=== PATIENT | female | born 2000 | race Caucasian/White ===

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

== ENCOUNTER 2022-01-08 12:14 | Emergency (ER) | payer MEDICAID ==
[~2022-01-08] VITALS: Ht 167.6 cm; Wt 81.6 kg
[2022-01-08 12:42] VITALS: BP 114/71
[2022-01-08 13:49] LABS: BASOPHILS # (AUTO) 0.1 K/uL (0.00-0.22); BASOPHILS % (AUTO) 0.8 % (0.0-2.0); EOSINOPHILS % (AUTO) 0.1 % (0.0-4.0); HEMATOCRIT 41.4 % (36-48); HEMOGLOBIN 14.5 g/dL (12.0-16.0); LYMPHOCYTES # (AUTO) 1.2 K/uL (2.5-16.5); LYMPHOCYTES % (AUTO) 6.5 % (20.5-51.1); MEAN CORPUSCULAR HEMOGLOBIN 31 pg (27-31); MEAN CORPUSCULAR HGB CONC 35 g/dL (33-37); MEAN CORPUSCULAR VOLUME 87.8 fL (80-94); MONOCYTES # (AUTO) 1.2 K/uL (0.8-1.0); MONOCYTES % (AUTO) 6.5 % (1.7-9.3); NEUTROPHILS # (AUTO) 15.9 K/uL (1.8-7.7); NEUTROPHILS % (AUTO) 86.1 % (42.2-75.2); PLATELET COUNT (AUTO) 398 K/uL (140-450); RED BLOOD CELL COUNT(AUTO) 4.71 MIL/uL (4.20-5.40); RED CELL DISTRIBUTION WIDTH 13.6 % (11.6-13.7); WHITE BLOOD COUNT (AUTO) 18.4 K/uL (4.5-11.0)
[2022-01-08 14:08] LABS: ALBUMIN 3.9 g/dL (3.4-5.0); ANION GAP 13.6 (8-16); CARBON DIOXIDE 34.9 mmol/L (21-32); CREATININE 1.1 mg/dL (0.6-1.3); TOTAL BILIRUBIN 0.8 mg/dL (0.0-1.0)
[2022-01-08 14:15] LABS: POTASSIUM 2.5 mmol/L (3.5-5.1)
[2022-01-08] MEDS ORDERED: KCL 20 MEQ/WATER INJ PREMIX 100 ML IV ONE (14:25)
[2022-01-08] MEDS ORDERED: POTASSIUM CHLORIDE 10 MEQ TABER PO SCH (14:25)
--- NOTE | 2022-01-08 14:30 | NUR ---
PT AMB TO ER BED 3 W/O ASST
[2022-01-08] MEDS ORDERED: POTASSIUM CHLORIDE 40 MEQ, LIDOCAINE 1% 25 MG in NACL 0.9% 250 ML IV ONE (14:35)
--- NOTE | 2022-01-08 14:45 | NUR ---
21F presents to ED with c/o bilateral hand cramping since today. Pt reports she was cooking at home when she started "started to feel weird" and suddenly was unable to open hands. Pt reports a constant, cramping like, 7/10 pain to both hands. Denies taking meds at home. Pt denies trauma/injury.
--- NOTE | 2022-01-08 14:55 | NUR ---
X ray at bedside.
[2022-01-08 15:18] LABS: APPEARANCE,URINE CLEAR (CLEAR); BILIRUBIN,URINE NEGATIVE (NEGATIVE); BLOOD, URINE NEGATIVE (NEGATIVE); COLOR,URINE YELLOW (YELLOW); LEUKOCYTE ESTERASE ,URINE NEGATIVE (NEGATIVE); NITRITE, URINE NEGATIVE (NEGATIVE); UGLUCOSE NEGATIVE (NEGATIVE)
--- NOTE | 2022-01-08 18:00 | NUR ---
Pt resting comfortably in bed, eyes open, side rails x1. All needs met at this time.
[2022-01-08] MEDS ORDERED: MAG SULF 2000 MG/WATER PREMIX 50 ML IV ONE (18:30)
[2022-01-08] MEDS ORDERED: KCL 20 MEQ/WATER INJ PREMIX 0 ML IV ONE (20:57)
--- NOTE | 2022-01-08 21:06 | NUR ---
STARTED IV MAG
[2022-01-08 23:33] VITALS: BP 109/39
--- NOTE | 2022-01-08 23:33 | NUR ---
Patient discharged with v/s stable. Written and verbal after care instructions given and explained. Patient verbalized understanding. Ambulatory with steady gait. All questions addressed prior to discharge. Advised to follow up with PMD. DX: HYPOMAGNESEMIA, HYPOKALEMIA
--- NOTE | 2022-01-11 15:03 | NUR ---
LATE ENTRY- IV MG SULFATE DISCONTINUED AT 2333.
== END 2022-01-08 23:33 | disposition home or self-care (01) ==
LOC: MED 12:14
DX: E87.6 Hypokalemia (principal); E83.42 Hypomagnesemia; M79.641 Pain in right hand; M79.642 Pain in left hand; Z79.899 Other long term (current) drug therapy
CPT/HCPCS: 36415; 71045; 80053; 81003; 83735; 85025; 93005; 96365; 96366; 96368; 99284; J2001; J3475; J3480; J7030

== ENCOUNTER 2023-03-07 17:12 | Emergency (ER) | payer BC, MEDICAID ==
[~2023-03-07] VITALS: Ht 167.6 cm; Wt 81.6 kg
[~2023-03-07 17:12] MED LIST changes: +AZIT500T8 PO; +BENZ-300 PO
[2023-03-07 17:42] VITALS: BP 118/65; PULSE 67; RESP 18; TEMP 97; O2SAT 98
[2023-03-07 19:15] LABS: BASOPHILS # (AUTO) 0.1 K/uL (0.00-0.22); BASOPHILS % (AUTO) 0.9 % (0.0-2.0); EOSINOPHILS # (AUTO) 0.1 K/uL (0-0.4); EOSINOPHILS % (AUTO) 0.7 % (0.0-4.0); HEMATOCRIT 40.5 % (36-48); HEMOGLOBIN 13.8 g/dL (12.0-16.0); LYMPHOCYTES # (AUTO) 3.8 K/uL (2.5-16.5); LYMPHOCYTES % (AUTO) 24.6 % (20.5-51.1); MEAN CORPUSCULAR HEMOGLOBIN 31 pg (27-31); MEAN CORPUSCULAR HGB CONC 34 g/dL (33-37); MEAN CORPUSCULAR VOLUME 90.8 fL (80-94); MONOCYTES # (AUTO) 0.7 K/uL (0.8-1.0); MONOCYTES % (AUTO) 4.7 % (1.7-9.3); NEUTROPHILS # (AUTO) 10.6 K/uL (1.8-7.7); NEUTROPHILS % (AUTO) 69.1 % (42.2-75.2); PLATELET COUNT (AUTO) 331 K/uL (140-450); RED BLOOD CELL COUNT(AUTO) 4.46 MIL/uL (4.20-5.40); RED CELL DISTRIBUTION WIDTH 13.3 % (11.6-13.7); WHITE BLOOD COUNT (AUTO) 15.4 K/uL (4.5-11.0)
[2023-03-07 19:24] LABS: ALBUMIN 3.6 g/dL (3.4-5.0); ANION GAP 9.8 (8-16); CARBON DIOXIDE 37.5 mmol/L (21-32); CREATININE 0.7 mg/dL (0.6-1.3); PHOSPHORUS 3.5 mg/dL (2.5-4.9)
[2023-03-07 19:27] LABS: POTASSIUM 2.3 mmol/L (3.5-5.1)
[2023-03-07] MEDS: NACL 0.9% 1,000 ML IV ONE (19:54)
[2023-03-07 20:22] LABS: APPEARANCE,URINE CLEAR (CLEAR); BILIRUBIN,URINE NEGATIVE (NEGATIVE); BLOOD, URINE NEGATIVE (NEGATIVE); COLOR,URINE YELLOW (YELLOW); LEUKOCYTE ESTERASE ,URINE NEGATIVE (NEGATIVE); NITRITE, URINE NEGATIVE (NEGATIVE); PH,URINE 7.5 (5.0-9.0); PROTEIN,URINE NEGATIVE (NEGATIVE); UGLUCOSE NEGATIVE (NEGATIVE); UROBILINOGEN,URINE 0.2 EU/dL (0.2 - 1)
[2023-03-07] MEDS: KCL 20 MEQ IN 100 mL PREMIX 200 ML IV ONE (21:04)
[2023-03-07] MEDS: MAG SULF 2000 MG/WATER PREMIX 50 ML IV ONE (21:40)
[2023-03-07 22:01] LABS: MAGNESIUM 1.9 mg/dL (1.8-2.4); PHOSPHORUS 3.6 mg/dL (2.5-4.9)
[2023-03-08] MEDS: POTASSIUM CHLORIDE 20% 40 MEQ/15 ML UDC PO ONE (00:49)
[2023-03-08 02:22] LABS: ANION GAP 7.2 (8-16); CALCIUM 8.6 mg/dL (8.5-10.1); CARBON DIOXIDE 37.5 mmol/L (21-32); CREATININE 0.7 mg/dL (0.6-1.3)
[2023-03-08 02:32] LABS: POTASSIUM 2.7 mmol/L (3.5-5.1)
[2023-03-08] MEDS ORDERED: POTA25TA6 PO (02:43)
[2023-03-08 03:20] VITALS: BP 109/64; PULSE 68; RESP 18; TEMP 97; O2SAT 98
== END 2023-03-08 03:20 | disposition home or self-care (01) ==
LOC: MED 17:12
DX: Z11.3 Encounter for screening for infections with a predominantly sexual mode of transmission (principal); E87.6 Hypokalemia; Z79.899 Other long term (current) drug therapy; Z79.2 Long term (current) use of antibiotics; Z79.1 Long term (current) use of non-steroidal anti-inflammatories (NSAID)
CPT/HCPCS: 36415; 80048; 80051; 81003; 81025; 82040; 82435; 82565; 82947; 83735; 84100; 84132; 84295; 84520; 85025; 93005; 96361; 96365; 96366; 96368; 99284; J3475; J3480; J7030

== ENCOUNTER 2023-03-22 07:34 | Inpatient (IN) | payer MEDICAID ==
[~2023-03-22] VITALS: Ht 152.4 cm; Wt 81.6 kg
[~2023-03-22 07:34] MED LIST changes: +POTA25TA6 PO
[2023-03-22 08:05] VITALS: BP 116/75; PULSE 90; RESP 18; TEMP 98; O2SAT 98
[2023-03-22] MEDS ORDERED: ALUMINUM HYD/MAG/SIMETHICONE 30 ML UDC ONE (09:39)
[2023-03-22] MEDS: ONDANSETRON 4 MG/2 ML VIAL IVP ONE (09:40)
[2023-03-22] MEDS ORDERED: DICYCLOMINE HCL LIQUID 10 MG/5 ML UDC ONE (09:40)
[2023-03-22] MEDS: DICYCLOMINE HCL LIQUID 20 MG, ALUMINUM HYD/MAG/SIMETHICONE 30 ML, LIDOCAINE VISCOUS 2% ... PO ONE (09:41)
[2023-03-22] MEDS: NACL 0.9% 1,000 ML IV ONE ×3 (09:42→13:52)
[2023-03-22 09:45] LABS: HEMATOCRIT 39.8 % (36-48); MEAN CORPUSCULAR HEMOGLOBIN 31 pg (27-31); MEAN CORPUSCULAR HGB CONC 35 g/dL (33-37); MEAN CORPUSCULAR VOLUME 89.2 fL (80-94); PLATELET COUNT (AUTO) 349 K/uL (140-450); RED BLOOD CELL COUNT(AUTO) 4.46 MIL/uL (4.20-5.40); RED CELL DISTRIBUTION WIDTH 13.3 % (11.6-13.7)
[2023-03-22 09:46] LABS: APPEARANCE,URINE CLEAR (CLEAR); BILIRUBIN,URINE NEGATIVE (NEGATIVE); BLOOD, URINE NEGATIVE (NEGATIVE); COLOR,URINE YELLOW (YELLOW); LEUKOCYTE ESTERASE ,URINE NEGATIVE (NEGATIVE); NITRITE, URINE NEGATIVE (NEGATIVE); PH,URINE 7.5 (5.0-9.0); PROTEIN,URINE 1+ (NEGATIVE); UGLUCOSE NEGATIVE (NEGATIVE); UROBILINOGEN,URINE 0.2 EU/dL (0.2 - 1)
[2023-03-22] MEDS: ACETAMINOPHEN EXTRA STRENGTH 500 MG TAB PO ONE (09:47)
[2023-03-22 09:58] LABS: WHITE BLOOD COUNT (AUTO) 28.3 K/uL (4.5-11.0)
[2023-03-22 09:59] LABS: LYMPHOCYTES % (MANUAL) 5 % (20-46); MONOCYTES % (MANUAL) 2 % (5-12); PLATELET ESTIMATE ADEQUATE
[2023-03-22 10:13] LABS: BACTERIA,URINE FEW /HPF (None Seen); RBC,URINE 0-5 /HPF (0-5); SQUAMOUS EPITHELIAL CELL,UR 0-3 (FEW) /LPF (0-3 (FEW)); WBC,URINE 0-5 /HPF (0-5)
[2023-03-22 10:18] LABS: ALBUMIN 3.6 g/dL (3.4-5.0); ANION GAP 9.6 (8-16); CALCIUM 9.5 mg/dL (8.5-10.1); CARBON DIOXIDE 38.6 mmol/L (21-32); MAGNESIUM 2.1 mg/dL (1.8-2.4); TOTAL BILIRUBIN 1.3 mg/dL (0.0-1.0); TOTAL PROTEIN, SERUM 9.3 g/dL (6.4-8.2)
[2023-03-22 10:22] LABS: POTASSIUM 2.2 mmol/L (3.5-5.1)
[2023-03-22] MEDS: KCL 20 MEQ IN 100 mL PREMIX 200 ML IV ONE (11:03)
[2023-03-22] MEDS ORDERED: VANCOMYCIN 1,000 MG VIAL ONE (13:34)
[2023-03-22] MEDS ORDERED: PIPERACILLIN/TAZOBACTAM 3.375 GM VIAL IV ONE (13:34)
[2023-03-22] MEDS: POTASSIUM CHLORIDE 10 MEQ TABER PO ONE (13:37)
[2023-03-22 13:39] LABS: LACTIC ACID 1.1 mmol/L (0.4-2.0)
[2023-03-22] MEDS ORDERED: HYDROcodone/APAP 5/325 MG 1 TAB TAB PO PRN (13:40)
[2023-03-22] MEDS ORDERED: ACETAMINOPHEN 325 MG TAB PO PRN ×2 (13:40→13:45)
[2023-03-22] MEDS ORDERED: MORPHINE SULFATE 4 MG/ML SYR IVP PRN (13:40)
[2023-03-22] MEDS ORDERED: MAG SULF 2000 MG/WATER PREMIX 50 ML IV PRN (13:45)
[2023-03-22] MEDS: PIPERACILLIN/TAZOBACTAM 3.375 GM in DEXTROSE 5% 50 ML IV ONE (13:52)
[2023-03-22] MEDS: LACTATED RINGERS 1,000 ML IV SCH (15:44)
[2023-03-22] MEDS: VANCOMYCIN 1,000 MG in DEXTROSE 5% 250 ML IV ONE (16:49)
[2023-03-22] MEDS ORDERED: MORPHINE SULFATE 2 MG/ML SYR IVP PRN (18:20)
[2023-03-22] MEDS ORDERED: PIPERACILLIN/TAZOBACTAM 3.375 GM in DEXTROSE 5% 50 ML IV SCH (21:00)
[2023-03-22 21:40] VITALS: BP 96/44; PULSE 77; RESP 18; TEMP 98; O2SAT 98
[2023-03-22 21:57] LABS: FLU A ANTIGEN negative (NEGATIVE); FLU B ANTIGEN NEGATIVE (NEGATIVE)
[2023-03-22] MEDS: PIPERACILLIN/TAZOBACTAM 3.375 GM in DEXTROSE 5% 50 ML IV SCH (22:22)
[2023-03-22] MEDS: PIPERACILLIN/TAZOBACTAM 3.375 GM VIAL IV ONE (22:22)
[2023-03-23] VITALS: BP 94/58; PULSE 55; RESP 18; TEMP 98.2; O2SAT 97
[2023-03-23] MEDS: ZOLPIDEM 10 MG TAB PO PRN (01:49)
[2023-03-23] MEDS: PIPERACILLIN/TAZOBACTAM 3.375 GM VIAL IV ONE (03:53)
[2023-03-23 04:00] VITALS: BP 108/46; PULSE 56; RESP 18; TEMP 98; O2SAT 94
[2023-03-23 07:05] LABS: BASOPHILS # (AUTO) 0.1 K/uL (0.00-0.22); BASOPHILS % (AUTO) 0.6 % (0.0-2.0); EOSINOPHILS # (AUTO) 0.1 K/uL (0-0.4); EOSINOPHILS % (AUTO) 0.3 % (0.0-4.0); HEMATOCRIT 32.5 % (36-48); HEMOGLOBIN 11.4 g/dL (12.0-16.0); LYMPHOCYTES # (AUTO) 3.2 K/uL (2.5-16.5); LYMPHOCYTES % (AUTO) 17.8 % (20.5-51.1); MEAN CORPUSCULAR HEMOGLOBIN 32 pg (27-31); MEAN CORPUSCULAR HGB CONC 35 g/dL (33-37); MONOCYTES # (AUTO) 0.9 K/uL (0.8-1.0); MONOCYTES % (AUTO) 4.9 % (1.7-9.3); NEUTROPHILS # (AUTO) 13.7 K/uL (1.8-7.7); NEUTROPHILS % (AUTO) 76.4 % (42.2-75.2); PLATELET COUNT (AUTO) 282 K/uL (140-450); RED BLOOD CELL COUNT(AUTO) 3.61 MIL/uL (4.20-5.40); RED CELL DISTRIBUTION WIDTH 13.6 % (11.6-13.7); WHITE BLOOD COUNT (AUTO) 17.9 K/uL (4.5-11.0)
[2023-03-23 07:18] LABS: ALBUMIN 2.8 g/dL (3.4-5.0); CALCIUM 8.4 mg/dL (8.5-10.1); CARBON DIOXIDE 37.3 mmol/L (21-32); CREATININE 0.8 mg/dL (0.6-1.3); TOTAL BILIRUBIN 0.7 mg/dL (0.0-1.0); TOTAL PROTEIN, SERUM 7.2 g/dL (6.4-8.2)
[2023-03-23 07:29] LABS: POTASSIUM 2.3 mmol/L (3.5-5.1)
[2023-03-23 08:00] VITALS: BP 101/52; PULSE 63; PULSE 70; RESP 18; TEMP 97.6; O2SAT 100; O2SAT 98
[2023-03-23] MEDS: ONDANSETRON 4 MG/2 ML VIAL IVP PRN (10:58)
[2023-03-23] MEDS: POTASSIUM CHLORIDE 40 MEQ, LIDOCAINE 1% 25 MG in NACL 0.9% 250 ML IV SCH (11:10)
[2023-03-23] MEDS: POTASSIUM CHLORIDE 10 MEQ TABER PO PRN (11:48)
[2023-03-23 16:00] VITALS: BP 106/42; PULSE 61; RESP 17; TEMP 98; O2SAT 98
[2023-03-23 20:00] VITALS: PULSE 68; RESP 18; O2SAT 97
[2023-03-24 04:00] VITALS: BP 98/54; PULSE 76; RESP 18; TEMP 97.9; O2SAT 97
[2023-03-24 07:01] LABS: BASOPHILS # (AUTO) 0.1 K/uL (0.00-0.22); BASOPHILS % (AUTO) 0.6 % (0.0-2.0); EOSINOPHILS % (AUTO) 0.3 % (0.0-4.0); HEMATOCRIT 38.6 % (36-48); LYMPHOCYTES # (AUTO) 3.5 K/uL (2.5-16.5); LYMPHOCYTES % (AUTO) 26.1 % (20.5-51.1); MEAN CORPUSCULAR HEMOGLOBIN 31 pg (27-31); MEAN CORPUSCULAR HGB CONC 34 g/dL (33-37); MEAN CORPUSCULAR VOLUME 90.7 fL (80-94); MONOCYTES # (AUTO) 0.6 K/uL (0.8-1.0); MONOCYTES % (AUTO) 4.5 % (1.7-9.3); NEUTROPHILS # (AUTO) 9.1 K/uL (1.8-7.7); NEUTROPHILS % (AUTO) 68.5 % (42.2-75.2); PLATELET COUNT (AUTO) 326 K/uL (140-450); RED BLOOD CELL COUNT(AUTO) 4.25 MIL/uL (4.20-5.40); RED CELL DISTRIBUTION WIDTH 13.6 % (11.6-13.7); WHITE BLOOD COUNT (AUTO) 13.3 K/uL (4.5-11.0)
[2023-03-24 07:31] LABS: ALBUMIN 3.3 g/dL (3.4-5.0); ANION GAP 8.9 (8-16); CARBON DIOXIDE 38.5 mmol/L (21-32); CREATININE 0.9 mg/dL (0.6-1.3); TOTAL PROTEIN, SERUM 8.6 g/dL (6.4-8.2)
[2023-03-24 07:40] LABS: POTASSIUM 2.4 mmol/L (3.5-5.1)
[2023-03-24 08:00] VITALS: BP 103/57; PULSE 76; RESP 18; TEMP 97.1; O2SAT 99
[2023-03-24] MEDS: PANTOPRAZOLE 40 MG INJ VIAL IVP SCH (09:26)
[2023-03-24] MEDS: POTASSIUM CHLORIDE 40 MEQ, LIDOCAINE 1% 25 MG in NACL 0.9% 250 ML IV PRN (14:12)
[2023-03-24] MEDS: SPIRONOLACTONE 25 MG TAB PO SCH (14:39)
[2023-03-24] MEDS: POTASSIUM CHLORIDE 10 MEQ TABER PO SCH (14:41)
[2023-03-24 16:00] VITALS: BP 108/62; PULSE 77; RESP 18; TEMP 97.2; O2SAT 98
[2023-03-24 20:00] VITALS: PULSE 87; RESP 18; O2SAT 97
[2023-03-25 04:00] VITALS: BP 100/52; PULSE 65; RESP 18; TEMP 97.4; O2SAT 97
[2023-03-25 07:08] LABS: BASOPHILS # (AUTO) 0.1 K/uL (0.00-0.22); BASOPHILS % (AUTO) 0.5 % (0.0-2.0); EOSINOPHILS # (AUTO) 0.1 K/uL (0-0.4); EOSINOPHILS % (AUTO) 0.6 % (0.0-4.0); HEMOGLOBIN 13.6 g/dL (12.0-16.0); LYMPHOCYTES # (AUTO) 2.6 K/uL (2.5-16.5); LYMPHOCYTES % (AUTO) 21.1 % (20.5-51.1); MEAN CORPUSCULAR HEMOGLOBIN 32 pg (27-31); MEAN CORPUSCULAR HGB CONC 35 g/dL (33-37); MEAN CORPUSCULAR VOLUME 90.8 fL (80-94); MONOCYTES # (AUTO) 0.7 K/uL (0.8-1.0); MONOCYTES % (AUTO) 5.4 % (1.7-9.3); NEUTROPHILS % (AUTO) 72.4 % (42.2-75.2); PLATELET COUNT (AUTO) 346 K/uL (140-450); RED BLOOD CELL COUNT(AUTO) 4.29 MIL/uL (4.20-5.40); RED CELL DISTRIBUTION WIDTH 13.3 % (11.6-13.7); WHITE BLOOD COUNT (AUTO) 12.5 K/uL (4.5-11.0)
[2023-03-25 07:23] LABS: ALBUMIN 3.5 g/dL (3.4-5.0); ANION GAP 10.1 (8-16); CALCIUM 9.5 mg/dL (8.5-10.1); CREATININE 0.9 mg/dL (0.6-1.3); POTASSIUM 3.1 mmol/L (3.5-5.1); TOTAL BILIRUBIN 1.2 mg/dL (0.0-1.0); TOTAL PROTEIN, SERUM 9.3 g/dL (6.4-8.2)
[2023-03-25 08:00] VITALS: BP 110/57; PULSE 75; RESP 18; TEMP 97.5; O2SAT 98; O2SAT 99
[2023-03-25] MEDS ORDERED: METR-435 PO (10:59)
[2023-03-25] MEDS ORDERED: CIPR500T4 PO (10:59)
[2023-03-25] MEDS ORDERED: ONDA-188 SL (11:03)
[2023-03-25] MEDS ORDERED: PANT40EC PO (11:03)
== END 2023-03-25 15:22 | disposition home or self-care (01) | DRG 720 ==
LOC: MED 07:34 → MTU 13:43
PROVIDERS: ADMIT Family Medicine; ATTEND Family Medicine
DX: A41.9 Sepsis, unspecified organism (principal); E87.3 Alkalosis; E26.81 Bartter's syndrome; E87.6 Hypokalemia; K52.9 Noninfective gastroenteritis and colitis, unspecified; I88.0 Nonspecific mesenteric lymphadenitis; Z20.822 Contact with and (suspected) exposure to COVID-19
CPT/HCPCS: 36415; 80053; 81001; 83605; 83690; 83735; 85025; 87040; 87081; 87086; 96365; 96375; 99291; C9113; J2001; J2405; J2543; J3370; J3480; J7030; J7060; Q9967